=== PATIENT | male | born 1980 | race Caucasian/White ===

== ENCOUNTER 2020-02-12 19:48 | Emergency (ER) | payer MEDICAID ==
[~2020-02-12] VITALS: Ht 182.9 cm; Wt 90.9 kg
[2020-02-12 20:11] VITALS: Ht 182.9 cm; Wt 90.9 kg
[2020-02-12 20:46] LABS: BASOPHILS 0.2 % (0-2); EOSINOPHILS 1.1 % (0-7); HEMATOCRIT 48.6 % (42.0-54.0); HEMOGLOBIN 16.5 g/dL (13.5-17.5); IMMATURE GRANULOCYTES 0.2 % (0-5); LYMPHOCYTES 36.5 % (15-50); MCH 31.9 pg (26.0-34.0); MCV 93.8 fL (80.0-100.0); MEAN PLATELET VOLUME 9.7 fL (7.4-10.4); PLATELET COUNT 209 10x3/uL (130-400); RBC 5.18 10x6/uL (4.20-6.10); RDW 13.4 % (11.5-14.5); WBC 8.7 10x3/uL (4.8-10.8)
[2020-02-12 20:56] LABS: CALC OSMOLALITY 277 mosm/kg (275-300); CALCIUM 8.5 mg/dL (8.5-10.1); CHLORIDE - SERUM 104 mmol/L (98-107); CREATININE - SERUM 0.9 mg/dL (0.6-1.3); GLUCOSE 86 mg/dL (74-106); POTASSIUM - SERUM 3.4 mmol/L (3.5-5.1); SODIUM 141 mmol/L (136-145); UREA NITROGEN 7 mg/dL (7-18); eGFR NON AFRICAN AMERICAN > 90 mL/min (90-120)
[2020-02-12 21:02] LABS: ALBUMIN 3.7 g/dL (3.4-5.0); ALKALINE PHOSPHATASE 55 U/L (30-120); ALT (SGPT) 44 U/L (10-68); AMYLASE - SERUM 56 U/L (25-115); BILIRUBIN - TOTAL 0.62 mg/dL (0.2-1.3); LIPASE 281 U/L (73-393); PROTEIN - SERUM 7.3 g/dL (6.4-8.2)
[2020-02-12 21:09] LABS: BILIRUBIN NEGATIVE (NEGATIVE); GLUCOSE NEGATIVE (NEGATIVE); KETONE NEGATIVE (NEGATIVE); NITRITE NEGATIVE (NEGATIVE); UROBILINOGEN NORMAL (NORMAL)
[2020-02-12] MEDS ORDERED: ZOFRAN ODT4 MG/UDTAB PO (21:59)
[2020-02-12 22:47] VITALS: BP 132/89
== END 2020-02-12 22:47 | disposition home or self-care (01) ==
LOC: D.ER 19:48
PROVIDERS: Family Medicine
DX: R11.2 Nausea with vomiting, unspecified (principal); R10.9 Unspecified abdominal pain; R19.7 Diarrhea, unspecified

== ENCOUNTER → 2020-02-12 | Emergency (ER) | payer MEDICAID ==
[~2020-02-12] MED LIST: ZOFRAN ODT4 MG/UDTAB PO
== END | disposition home or self-care (01) ==
LOC: EDBD 19:41 → D.ER 19:41
DX: R11.0 Nausea (principal)